=== PATIENT | male | born 1950 | race Caucasian/White ===

== ENCOUNTER 2017-01-24 20:31 | Inpatient (IN) | payer SELFPAY ==
[~2017-01-24] VITALS: Ht 172.7 cm; Wt 87.4 kg
[2017-01-24 21:13] LABS: DAU SCREEN DISCLAIMER
[2017-01-24 21:16] LABS: HEMATOCRIT 43.5 % (39.2-51.8); HEMOGLOBIN 14.6 g/dL (13.7-18.0); WHITE BLOOD COUNT 8.9 x10^3/uL (3.4-10)
[2017-01-24 21:23] LABS: ASPARTATE AMINO TRANSFERASE 25 U/L (15-37); BLOOD UREA NITROGEN 18 mg/dL (7-18)
[2017-01-24 21:27] LABS: ACETAMINOPHEN < 10 mcg/mL (10-30)
[2017-01-24] MEDS ORDERED: ONDANSETRON 2MG/ML, 2ML IVPush ONE (21:30)
[2017-01-24] MEDS ORDERED: HYDROmorphone 1 MG/ML, 1ML IVPush PRN (21:30)
[2017-01-25] MEDS ORDERED: LORazepam 1MG TABLET ONE ×2 (02:08→06:35)
[2017-01-25] MEDS ORDERED: LORazepam 1MG TABLET PO ONE ×2 (05:00→07:00)
[2017-01-25] MEDS ORDERED: CLON1TAB PO (06:43)
[2017-01-25] MEDS ORDERED: QUET400T4 PO (06:43)
[2017-01-25] MEDS ORDERED: LORazepam 2 MG/ML, 1ML IVPush PRN (08:30)
[2017-01-25] MEDS ORDERED: THIAMINE 100MG TABLET PO ONE (08:30)
[2017-01-25] MEDS: SODIUM CHLORIDE 0.9% 1,000 ML IV SCH ×2 (08:36→20:51)
[2017-01-25] MEDS ORDERED: THIAMINE 100MG TABLET ONE (08:56)
[2017-01-25] MEDS ORDERED: OXYcodone IR 5MG TABLET PO PRN (09:00)
[2017-01-25] MEDS: NICOTINE 21 MG/24 HR PATCH.TD24 TD SCH (09:00)
[2017-01-25] MEDS: TAMSULOSIN 0.4 MG CAP.ER.24H PO SCH (09:00)
[2017-01-25] MEDS ORDERED: ONDANSETRON 2MG/ML, 2ML IVPush PRN (09:00)
[2017-01-25] MEDS ORDERED: morphine SULFATE 10 MG/ML, 1ML IVPush PRN (09:00)
[2017-01-25] MEDS ORDERED: LABETALOL 5MG/ML, 20ML IVPush PRN (09:00)
[2017-01-25] MEDS: PANTOPROZOLE 40MG TABLET PO SCH (09:00)
[2017-01-25] MEDS ORDERED: NICOTINE 21 MG/24 HR PATCH.TD24 ONE (09:01)
[2017-01-25] MEDS ORDERED: PANTOPRAZOLE 20MG TABLET ONE (09:01)
[2017-01-25] MEDS ORDERED: TAMSULOSIN 0.4 MG CAP.ER.24H ONE (09:01)
[2017-01-25] MEDS ORDERED: HYDROmorphone 1 MG/ML, 1ML ONE (09:09)
[2017-01-25] MEDS ORDERED: LORazepam 2 MG/ML, 1ML ONE (09:10)
[2017-01-25] MEDS: LORazepam 2 MG/ML, 1ML IVPush PRN ×4 (09:12→14:02)
[2017-01-25 10:13] VITALS: BP 143/65
[2017-01-25] MEDS: POTASSIUM CHLORIDE 20 MEQ, MAGNESIUM SULFATE 1 GM, FOLIC ACID 1 MG, THIAMINE 100 MG, MV... IV SCH (11:49)
[2017-01-25 15:59] VITALS: BP 140/72
[2017-01-25] MEDS ORDERED: ZIPRASIDONE 20 MG INJ IM PRN (16:30)
[2017-01-25 18:31] VITALS: BP 130/67
[2017-01-25] MEDS: QUETIAPINE 200 MG TABLET PO SCH (20:52)
[2017-01-26 02:44] VITALS: BP 131/68
[2017-01-26] MEDS: SODIUM CHLORIDE 0.9% 1,000 ML IV SCH (04:18)
[2017-01-26 06:32] LABS: ASPARTATE AMINO TRANSFERASE 14 U/L (15-37); BLOOD UREA NITROGEN 16 mg/dL (7-18)
[2017-01-26] MEDS: TAMSULOSIN 0.4 MG CAP.ER.24H PO SCH (07:58)
[2017-01-26] MEDS: PANTOPROZOLE 40MG TABLET PO SCH (07:58)
[2017-01-26] MEDS: NICOTINE 21 MG/24 HR PATCH.TD24 TD SCH (08:57)
[2017-01-26] MEDS: POTASSIUM CHLORIDE 20 MEQ, MAGNESIUM SULFATE 1 GM, FOLIC ACID 1 MG, THIAMINE 100 MG, MV... IV SCH (08:57)
[2017-01-26 13:25] VITALS: BP 129/67
[2017-01-26] MEDS: LORazepam 2 MG/ML, 1ML IVPush PRN (15:15)
[2017-01-26 19:12] VITALS: BP 139/71
[2017-01-26] MEDS: LORazepam 1MG TABLET PO PRN (21:16)
[2017-01-26] MEDS: QUETIAPINE 200 MG TABLET PO SCH (21:24)
[2017-01-27 02:30] VITALS: BP 124/53
[2017-01-27] MEDS: LORazepam 1MG TABLET PO PRN ×4 (03:16→21:40)
[2017-01-27 07:55] VITALS: BP 136/78
[2017-01-27] MEDS: PANTOPROZOLE 40MG TABLET PO SCH (07:57)
[2017-01-27] MEDS: THIAMINE 100MG TABLET PO SCH (08:49)
[2017-01-27] MEDS: MULTIVITAMIN 1 TABLET PO SCH (08:49)
[2017-01-27] MEDS: TAMSULOSIN 0.4 MG CAP.ER.24H PO SCH (08:49)
[2017-01-27] MEDS: CYANOCOBALAMIN 1,000 MCG TABLET PO SCH (08:49)
[2017-01-27] MEDS: NICOTINE 21 MG/24 HR PATCH.TD24 TD SCH (08:50)
[2017-01-27] MEDS: FOLIC ACID 1 MG TABLET PO SCH (08:50)
[2017-01-27 14:30] VITALS: BP 128/74
[2017-01-27 18:39] VITALS: BP 119/52
[2017-01-27] MEDS: QUETIAPINE 200 MG TABLET PO SCH (20:29)
[2017-01-28 01:39] VITALS: BP 96/56
[2017-01-28 08:00] VITALS: BP 121/74
[2017-01-28] MEDS: FOLIC ACID 1 MG TABLET PO SCH (08:08)
[2017-01-28] MEDS: THIAMINE 100MG TABLET PO SCH (08:08)
[2017-01-28] MEDS: LORazepam 1MG TABLET PO PRN ×3 (08:08→22:54)
[2017-01-28] MEDS: MULTIVITAMIN 1 TABLET PO SCH (08:08)
[2017-01-28] MEDS: CYANOCOBALAMIN 1,000 MCG TABLET PO SCH (08:08)
[2017-01-28] MEDS: PANTOPROZOLE 40MG TABLET PO SCH (08:08)
[2017-01-28] MEDS: TAMSULOSIN 0.4 MG CAP.ER.24H PO SCH (08:08)
[2017-01-28] MEDS: NICOTINE 21 MG/24 HR PATCH.TD24 TD SCH (08:12)
[2017-01-28 14:27] VITALS: BP 129/69
[2017-01-28 20:00] VITALS: BP 151/81
[2017-01-28] MEDS: QUETIAPINE 200 MG TABLET PO SCH (22:54)
[2017-01-29 03:06] VITALS: BP 104/57
[2017-01-29 07:35] VITALS: BP 127/77
[2017-01-29] MEDS: LORazepam 1MG TABLET PO PRN ×3 (08:15→20:49)
[2017-01-29] MEDS: FOLIC ACID 1 MG TABLET PO SCH (08:16)
[2017-01-29] MEDS: THIAMINE 100MG TABLET PO SCH (08:16)
[2017-01-29] MEDS: MULTIVITAMIN 1 TABLET PO SCH (08:16)
[2017-01-29] MEDS: TAMSULOSIN 0.4 MG CAP.ER.24H PO SCH (08:16)
[2017-01-29] MEDS: CYANOCOBALAMIN 1,000 MCG TABLET PO SCH (08:16)
[2017-01-29] MEDS: PANTOPROZOLE 40MG TABLET PO SCH (08:16)
[2017-01-29] MEDS: NICOTINE 21 MG/24 HR PATCH.TD24 TD SCH (08:19)
[2017-01-29 14:00] VITALS: BP 132/76
[2017-01-29] MEDS: POLYETHYLENE GLYCOL 17 GM PACKET PO PRN (16:32)
[2017-01-29 19:55] VITALS: BP 125/73
[2017-01-29] MEDS: QUETIAPINE 200 MG TABLET PO SCH (20:49)
[2017-01-30 02:00] VITALS: BP 108/62
[2017-01-30 07:05] VITALS: BP 129/76
[2017-01-30] MEDS: LORazepam 1MG TABLET PO PRN (07:53)
[2017-01-30] MEDS: THIAMINE 100MG TABLET PO SCH (07:53)
[2017-01-30] MEDS: FOLIC ACID 1 MG TABLET PO SCH (07:53)
[2017-01-30] MEDS: TAMSULOSIN 0.4 MG CAP.ER.24H PO SCH (07:53)
[2017-01-30] MEDS: MULTIVITAMIN 1 TABLET PO SCH (07:53)
[2017-01-30] MEDS: CYANOCOBALAMIN 1,000 MCG TABLET PO SCH (07:54)
[2017-01-30] MEDS: NICOTINE 21 MG/24 HR PATCH.TD24 TD SCH (07:54)
[2017-01-30] MEDS: PANTOPROZOLE 40MG TABLET PO SCH (07:54)
[2017-01-30 13:50] VITALS: BP 131/66
[2017-01-30 17:45] VITALS: BP_SYST 160; BP_SYST 184; BP_DIAS 89
[2017-01-30 18:08] VITALS: BP_SYST 147; BP_SYST 148; BP_DIAS 84; BP_DIAS 88
[2017-01-30] MEDS: QUETIAPINE 200 MG TABLET PO SCH (20:47)
[2017-01-31] MEDS: PANTOPROZOLE 40MG TABLET PO SCH (08:06)
[2017-01-31 08:42] VITALS: BP 153/51
[2017-01-31] MEDS: NICOTINE 21 MG/24 HR PATCH.TD24 TD SCH (09:00)
[2017-01-31] MEDS: TAMSULOSIN 0.4 MG CAP.ER.24H PO SCH (09:11)
[2017-01-31] MEDS: FOLIC ACID 1 MG TABLET PO SCH (09:12)
[2017-01-31] MEDS: THIAMINE 100MG TABLET PO SCH (09:12)
[2017-01-31] MEDS: MULTIVITAMIN 1 TABLET PO SCH (09:12)
[2017-01-31] MEDS: CYANOCOBALAMIN 1,000 MCG TABLET PO SCH (09:14)
[2017-01-31] MEDS: LORazepam 1MG TABLET PO PRN (09:24)
[2017-01-31 19:04] VITALS: BP 143/76
[2017-01-31] MEDS: QUETIAPINE 200 MG TABLET PO SCH (21:36)
[2017-02-01 08:00] VITALS: BP 126/77
[2017-02-01] MEDS: MULTIVITAMIN 1 TABLET PO SCH (08:59)
[2017-02-01] MEDS: THIAMINE 100MG TABLET PO SCH (08:59)
[2017-02-01] MEDS: FOLIC ACID 1 MG TABLET PO SCH (08:59)
[2017-02-01] MEDS: PANTOPROZOLE 40MG TABLET PO SCH (08:59)
[2017-02-01] MEDS: TAMSULOSIN 0.4 MG CAP.ER.24H PO SCH (08:59)
[2017-02-01] MEDS: CYANOCOBALAMIN 1,000 MCG TABLET PO SCH (09:00)
[2017-02-01] MEDS: NICOTINE 21 MG/24 HR PATCH.TD24 TD SCH (09:00)
[2017-02-01 19:41] VITALS: BP 147/78
[2017-02-01] MEDS: QUETIAPINE 200 MG TABLET PO SCH (20:29)
[2017-02-02 07:49] VITALS: BP 128/71
[2017-02-02] MEDS: LORazepam 1MG TABLET PO PRN (08:50)
[2017-02-02] MEDS: TAMSULOSIN 0.4 MG CAP.ER.24H PO SCH (08:51)
[2017-02-02] MEDS: FOLIC ACID 1 MG TABLET PO SCH (08:51)
[2017-02-02] MEDS: CYANOCOBALAMIN 1,000 MCG TABLET PO SCH (08:51)
[2017-02-02] MEDS: MULTIVITAMIN 1 TABLET PO SCH (08:51)
[2017-02-02] MEDS: THIAMINE 100MG TABLET PO SCH (08:51)
[2017-02-02] MEDS: NICOTINE 21 MG/24 HR PATCH.TD24 TD SCH (09:00)
[2017-02-02] MEDS: POLYETHYLENE GLYCOL 17 GM PACKET PO PRN (10:42)
[2017-02-02] MEDS: PANTOPROZOLE 40MG TABLET PO SCH (14:44)
[2017-02-02 19:49] VITALS: BP 132/79
[2017-02-02] MEDS: QUETIAPINE 200 MG TABLET PO SCH (20:08)
== END 2017-02-03 03:30 | DRG 885 ==
LOC: ED 23:59 → EDIP 01-25 07:34 → 4WST 01-25 10:02 → 3E 01-30 17:29
PROVIDERS: ADMIT Internal Medicine; ATTEND Internal Medicine
DX: F31.30 Bipolar disorder, current episode depressed, mild or moderate severity, unspecified (principal); R45.851 Suicidal ideations; R00.0 Tachycardia, unspecified; F10.120 Alcohol abuse with intoxication, uncomplicated; I10 Essential (primary) hypertension; F17.210 Nicotine dependence, cigarettes, uncomplicated; J44.9 Chronic obstructive pulmonary disease, unspecified; B19.20 Unspecified viral hepatitis C without hepatic coma; N40.0 Benign prostatic hyperplasia without lower urinary tract symptoms; F13.10 Sedative, hypnotic or anxiolytic abuse, uncomplicated; Z91.14 Patient's other noncompliance with medication regimen; Z91.5 Personal history of self-harm; Z59.0 Homelessness; Z80.0 Family history of malignant neoplasm of digestive organs; Z80.1 Family history of malignant neoplasm of trachea, bronchus and lung; Z88.8 Allergy status to other drugs, medicaments and biological substances
CPT/HCPCS: 36415; 80053; 80307; 80329; 83735; 84100; 84443; 85025; 93005; 96374; J3411; J3475; J3480; J3486; G0480; J2060; J7030; J7121